=== PATIENT | female | born 1990 | race Caucasian/White ===

== ENCOUNTER → 2022-02-01 | Emergency (ER) | payer OTHER ==
[~2022-02-01] VITALS: Ht 152.4 cm; Wt 52.2 kg
[~2022-02-01] MED LIST: DEXAMETHASONE SOD PHOSPHATE 10 MG/ML VIAL PO ONE; IBUP-1969 PO; IBUPROFEN 600 MG TABLET PO ONE; LORA10TA7 PO; LORATADINE 10 MG TABLET PO ONE; TOBRADEXD EACH EYE; TOBRAMYCIN/DEXAMETHASONE Non-Formulary EYE DROPS.SUSP 2.5 ML OP SCH
[2022-02-01 23:50] VITALS: BP_SYST 148
--- NOTE | 2022-02-01 23:56 | NUR ---
PATIENT WAS ON VACATION FOR A WEEK, SWIMMING AND HAD FLIGHT TODAY. SINCE THEN, BILATERAL EARS HAVE BEEN HURTING AND IT'S "HARD TO HEAR" PER PATIENT. RIGHT EYE IS ALSO SWOLLEN WELL.
--- NOTE | 2022-02-02 05:10 | NUR ---
PATIENT TO ER BED 1 FOR EVALUATION. SIDE RAILS UP.
--- NOTE | 2022-02-02 05:25 | NUR ---
ANGELI HILL AT BEDSIDE EXAMINING PATIENT.
[2022-02-02 06:55] VITALS: BP_SYST 140
--- NOTE | 2022-02-02 06:55 | NUR ---
Patient given written and verbal discharge instructions and verbalizes understanding. ER MD HILL discussed with patient the results and treatment provided. Patient in stable condition. ID arm band removed. Rx of IBUPROFEN, CLARITIN, TOBRAMYCIN given. Patient educated on pain management and to follow up with PMD. Pain Scale 0/10. Opportunity for questions provided and answered. Medication side effect fact sheet provided.
== END | disposition home or self-care (01) ==
LOC: SED 23:48
DX: J02.8 Acute pharyngitis due to other specified organisms (principal); B97.89 Other viral agents as the cause of diseases classified elsewhere; H10.31 Unspecified acute conjunctivitis, right eye; H74.8X3 Other specified disorders of middle ear and mastoid, bilateral; Z79.899 Other long term (current) drug therapy
CPT/HCPCS: 36415; 99283; 99284; J1100